=== PATIENT | female | born 1945 | race Caucasian/White ===

== ENCOUNTER 2021-08-15 16:24 | Emergency (ER) | payer SELFPAY ==
[2021-08-15 16:46] VITALS: BP 123/66; PULSE 102; TEMP 98; BMI 26.9
[2021-08-15] MEDS ORDERED: MECLIZINE HCL 25 MG TABLET (FP) PO ONE (19:24)
[2021-08-15 19:31] LABS: BASO % 0.6 % (0-2.0); EOS % 0.1 % (0-4.5); HEMATOCRIT 48.6 % (32.4-45.2); HEMOGLOBIN 16.2 GM/dL (10.7-15.3); LYMPH % 12.2 % (8-40); MCH 29.7 pg (25.7-33.7); MCHC 33.3 g/dl (32.0-36.0); MEAN CELL VOLUME 89.1 fl (80-96); NEUT % 82.1 % (42.8-82.8); PLATELET COUNT 342 10^3/uL (134-434); RBC 5.45 M/mm3 (3.60-5.2); RDW 14.2 % (11.6-15.6); WHITE BLOOD COUNT 12.3 K/mm3 (4.0-10.0)
[2021-08-15] MEDS ORDERED: SODIUM CHLORIDE 0.9% 500 ML INFUS.BAG IV ONE (19:42)
[2021-08-15] MEDS ORDERED: MECLIZINE HCL 25 MG TABLET (FP) ONE (19:49)
[2021-08-15 19:50] LABS: CALCIUM 9.7 mg/dL (8.5-10.1)
[2021-08-15 19:52] LABS: ALBUMIN 4.2 g/dl (3.4-5.0)
[2021-08-15 19:56] LABS: TOT PROT 8.6 g/dl (6.4-8.2)
[2021-08-15 19:57] LABS: BILIRUBIN,TOTAL 0.7 mg/dL (0.2-1)
[2021-08-15 19:59] LABS: N-TERMINAL BNP 799.4 pg/ml (5-450)
[2021-08-15 20:29] LABS: EPI CELLS 5 /uL (0-25.1); HYALINE CASTS 0 /uL (0-3.1); URINE APPEARANCE CLEAR; URINE BACTERIA 25 /uL (0-1359); URINE BILIRUBIN NEGATIVE (NEGATIVE); URINE COLOR YELLOW; URINE GLUCOSE (UA) NEGATIVE (NEGATIVE); URINE KETONE NEGATIVE (NEGATIVE); URINE LEUK ESTERASE TRACE (NEGATIVE); URINE NITRITE NEGATIVE (NEGATIVE); URINE PROTEIN NEGATIVE (NEGATIVE); URINE RBC 12 /uL (0-23.9); URINE WBC 14 /uL (0-25.8)
== END 2021-08-16 00:03 | disposition home or self-care (01) ==
LOC: JER 16:24
DX: R42 Dizziness and giddiness (principal)
CPT/HCPCS: 36415; 70450-TC; 71045-TC-FY; 80053; 81003; 83880; 84484; 85025; 87086; 93005; 93010; 99285-25